=== PATIENT | female | born 1990 | race Caucasian/White ===

== ENCOUNTER 2022-12-14 17:03 | Emergency (ER) | payer OTHER ==
[~2022-12-14] VITALS: Ht 154.9 cm; Wt 69.5 kg
[2022-12-14 17:24] VITALS: BP 129/87; PULSE 83; RESP 20; TEMP 98.7; O2SAT 100
[2022-12-14 22:00] VITALS: BP 129/87; PULSE 83; RESP 20; TEMP 98.7; O2SAT 100
== END 2022-12-14 22:00 | disposition left against medical advice (07) ==
LOC: MED 17:03
DX: O46.91 Antepartum hemorrhage, unspecified, first trimester (principal); Z53.21 Procedure and treatment not carried out due to patient leaving prior to being seen by health care provider; Z3A.01 Less than 8 weeks gestation of pregnancy
CPT/HCPCS: 36415; 84702; 99281